=== PATIENT | female | born 1995 | race Caucasian/White ===

== ENCOUNTER → 2021-01-20 16:12 | Outpatient (BNVA) | payer MEDICAID, SELFPAY | PROVIDERS: Family Provider Family Medicine; Visit Provider Registered Nurse | DX: R05 Cough (principal); Z20.822 Contact with and (suspected) exposure to COVID-19 | CPT/HCPCS: 87635 ==

== ENCOUNTER → 2021-03-13 09:49 | Outpatient (BNVA) | payer MEDICAID, SELFPAY | PROVIDERS: Family Provider Family Medicine; Visit Provider Registered Nurse | DX: Z20.822 Contact with and (suspected) exposure to COVID-19 (principal) | CPT/HCPCS: 87635 ==

== ENCOUNTER 2024-05-15 10:36 | Emergency (ER) | payer MEDICAID, SELFPAY ==
[2024-05-15] VITALS (18 sets, daily range): BP systolic 115–139; BP diastolic 70–105; PULSE 113–139; RESP 17–27; TEMP 37.9–39.2; O2SAT 92–97; BMI 25.0
--- NOTE | 2024-05-15 10:39 | XRR_ITS ---
PROCEDURE INFORMATION: Exam: XR Abdomen Exam date and time: 05/15/2024 10:46 AM Age: 28 years old Clinical indication: Other: Left flank pain; Additional info: L flank pain - nephrolithiasis TECHNIQUE: Imaging protocol: Radiologic exam of the abdomen. Views: Frontal supine view of the abdomen. 1 View. Total images: 431 COMPARISON: No relevant prior studies available. FINDINGS: Gastrointestinal tract: Bowel gas pattern is nondistended and nonobstructive. Organs: No renal, ureteral, nor bladder calculi detected. Bones/joints: Unremarkable. Other findings: Mild stool burden. XR/XR KUB portable [id number] IMPRESSION: 1. Mild stool burden. 2. Normal bowel gas pattern 3. No renal, ureteral, nor bladder calculi detected.
--- NOTE | 2024-05-15 10:40 | W.ED.FEMALGU ---
HPI - Female Genitourinary General: Chief complaint: Abdominal Pain Stated complaint: kidney stones, flank pain Time Seen by Provider: 05/15/24 10:37 History of Present Illness: 28-year-old female who presents to the emergency room with left-sided flank pain. She was seen a few days ago in [place] told she had a 4 mm stone. She was discharged home on Flomax she is complaining of worsening left flank pain with fever and back pain. She denies any hematuria but notices that her urine has been somewhat discolored due to the Azo she has been taking. Associated symptoms: Deny abdominal pain Related Data Home Medications Medication Instructions Recorded Confirmed omeprazole 40 mg capsule,delayed 40 mg PO DAILY 05/15/24 05/15/24 release tamsulosin 0.4 mg capsule 0.4 mg PO DAILY 05/15/24 05/15/24 Allergies Allergy/AdvReac Type Severity Reaction Status Date / Time Penicillins Allergy Unknown Verified 11/02/23 14:19 Review of Systems Const: Denies: fever(s) or chills Card: Denies: chest pain Resp: Denies: dyspnea GI: Denies: abdominal pain : Reports: flank pain, dysuria, urinary frequency and urinary urgency Musc: Denies: neck pain or back pain Skin/Breast: Denies: rash PFSH ED PFSH: Social History Smoking and tobacco/nicotine status: current every day tobacco/nicotine user Alcohol intake: current Substance/Drug Use: never Sexually active: Yes Do you think of yourself as: Straight/Heterosexual Current gender identity: Female Physical Exam Const: GENERAL APPEARANCE: cooperative ORIENTATION/CONSCIOUSNESS: Yes awake, Yes oriented to person, Yes oriented to place and Yes oriented to time HENMT: COMMON NORMALS: normocephalic, atraumatic and hearing grossly normal bilaterally HEAD & SCALP: normocephalic and atraumatic Resp: COMMON NORMALS: normal respiratory effort, No retractions, No use of accessory muscles and clear to auscultation bilaterally AUSCULTATION: clear to auscultation bilaterally Cardio: COMMON NORMALS: regular rate, regular rhythm and No murmurs present (Cardio) RATE: regular rate RHYTHM: regular rhythm GI: COMMON NORMALS: Soft to palpation and No hepatosplenomegaly present AUSCULTATION: Yes normoactive bowel sounds PALPATION: Yes Soft to palpation, No Tenderness to palpation present (GI), No Guarding due to palpation present (GI) and Yes No hepatosplenomegaly present : BLADDER/KIDNEY EXAM: Yes CVA tenderness Back/Pelvis: GENERAL BACK: Yes CVA tenderness CVA tenderness: left Extremity: COMMON NORMALS: normal to inspection, capillary refill normal, no clubbing, cyanosis or edema, no calf tenderness and no pedal edema Neuro: SENSORIUM/ORIENTATION: Yes oriented to person, Yes oriented to place and Yes oriented to time Skin: COMMON NORMALS: no rashes or lesions noted GENERAL SKIN EXAM: no rashes or lesions noted Course Vital Signs: Vital signs: Vital Signs Temperature 100.7 F H 05/15/24 13:43 Pulse Rate 119 H 05/15/24 16:00 Respiratory Rate 26 H 05/15/24 16:00 Blood Pressure 127/75 05/15/24 14:04 Pulse Oximetry 97 05/15/24 16:00 Oxygen Delivery Me thod Room Air 05/15/24 14:04 MDM - Female Medical Decision Making Records from outside hospital reviewed patient had a cystitis no significant amount of hematuria but she did have a 4 mm distal stone. Patient has not previously been started on any antibiotics. She is tachycardic now with a temp of 100.3. No leukocytosis and lactic acid is normal. I believe this she does have a obstructive pyelonephritis she will require urology consultation or making arrangements to transfer to [facility] in [place]. Medical Records I reviewed the patient's medical records. Lab Data I reviewed the patient's lab results. 05/15/24 11:28 05/15/24 11:28 Radiology Impressions KUB X-Ray 05/15/24 10:39 IMPRESSION: 1. Mild stool burden. 2. Normal bowel gas pattern 3. No renal, ureteral, nor bladder calculi detected. Abdomen/Pelvis CT 05/15/24 11:47 IMPRESSION: 1. Mild LEFT hydroureteronephrosis secondary to a 4 mm calcification in the distal ureter near the UV junction. 2. Nonobstructing 2 mm calcification upper pole RIGHT kidney. 3. No GI tract obstruction. Laboratory Results WBC 10.84 10^3/uL (3.29-11.43) 05/15/24 11:28 RBC 3.72 10^6/uL (3.85-5.65) L 05/15/24 11:28 Hgb 11.40 g/dL (11.27-16.99) 05/15/24 11:28 Hct 34.2 % (36-47) L 05/15/24 11:28 MCV 91.9 fl (85-98) 05/15/24 11:28 MCH 30.6 pg (27-33) 05/15/24 11:28 MCHC 33.3 g/dL (30-55) 05/15/24 11:28 RDW 11.3 % (12.1-15.1) L 05/15/24 11:28 Plt Count 201 10^3/cmm (157-399) 05/15/24 11:28 MPV 9.6 fL (7.4-10.4) 05/15/24 11: Neut % (Auto) 85.3 % 05/15/24 11:28 Lymph % (Auto) 7.2 % 05/15/24 11:28 [place] % (Auto) 6.3 % 05/15/24 11:28 Eos % (Auto) 0.6 % 05/15/24 11:28 Baso % (Auto) 0.3 % 05/15/24 11:28 Neut # (Auto) 9.25 10^3/uL (1.8-7.7) H 05/15/24 11:28 Lymph # (Auto) 0.8 10^3/uL (0.8-4.8) 05/15/24 11:28 [place] # (Auto) 0.7 10^3/uL (0.2-0.9) 05/15/24 11:28 Eos # (Auto) 0.1 10^3/uL (0.0-0.8) 05/15/24 11:28 Baso # (Auto) 0.0 10^3/uL (0.0-0.1) 05/15/24 11:28 Nucleated RBC % (auto) 0 % 05/15/24 11:28 Nucleated RBCs # 0.0 /100WBC 05/15/24 11:28 Sodium 139 mmol/L (136-145) 05/15/24 11:28 Potassium 3.6 mmol/L (3.5-5.1) 05/15/24 11:28 Chloride 105 mmol/L (98-107) 05/15/24 11:28 Carbon Dioxide 24 mmol/L (22-29) 05/15/24 11:28 Anion Gap 13.6 (5-19) 05/15/24 11:28 BUN 10 mg/dL (6-20) 05/15/24 11:28 Creatinine 0.7 mg/dL (0.5-0.9) 05/15/24 11: GFR Calculation 98.3 mL/min (90-130) 05/15/24 11:28 Glucose 94 mg/dL (65-115) 05/15/24 11:28 Calculated Osmolality 287 mOsm/kg (285-295) 05/15/24 11:28 Lactic Acid 0.7 mmol/L (0.5-2.2) 05/15/24 11:28 Calcium 7.5 mg/dL (8.5-10.5) L 05/15/24 11:28 Total Bilirubin 0.2 mg/dL (0.15-1.2) 05/15/24 11:28 AST 42 U/L (0-32) H 05/15/24 11:28 ALT 55 U/L (0-33) H 05/15/24 11:28 Alkaline Phosphatase 125 U/L (35-105) H 05/15/24 11:28 Total Protein 5.1 g/dL (6.6-8.7) L 05/15/24 11:28 Albumin 3.4 g/dL (3.5-5.2) L 05/15/24 11:28 Globulin 1.7 g/dL (1.3-4.6) 05/15/24 11:28 Urine Color Dark yellow (Yellow) A 05/15/24 11:38 Urine Appearance Cloudy (CLEAR) A 05/15/24 11:38 Urine pH 6.5 (5-7) 05/15/24 11: Ur Specific [place] 1.018 (1.005-1.030) 05/15/24 11:38 Urine Protein Trace (Negative) A 05/15/24 11:38 Urine Glucose (UA) Negative (Normal) 05/15/24 11:38 Urine Ketones Trace (Negative) 05/15/24 11: Urine Blood Non-haemolysed trace (Negative) 05/15/24 11:38 Urine Nitrate Positive (Negative) A 05/15/24 11:38 Urine Bilirubin Negative (Negative) 05/15/24 11:38 Urine Urobilinogen 1.0 mg/dL (Negative) 05/15/24 11:38 Ur Leukocyte Esterase 1+ (Negative) A 05/15/24 11:38 Urine RBC 3-5 /hpf (0-2) 05/15/24 11:38 Urine WBC 51-100 /hpf (0-5) H 05/15/24 11:38 Ur Squamous Epith Cells 0-5 /hpf (0-5) 05/15/24 11:38 Amorphous Sediment Not Reportable 05/15/24 11:38 Urine Bacteria Exceeds /hpf (NONE) 05/15/24 11:38 Hyaline Casts 1.65 /lpf 05/15/24 11:38 All radiology interpretation(s) finalized by discharge Discharge Plan Discharge Patient Disposition: Xfer Short-Term Hosp Clinical Impression: Obstructive pyelonephritis, Right nephrolithiasis Condition: Stable Referrals: Joel Peck FNP [Primary Care Provider] - Coding Level of Care Code ED Certified Pediatric Nurse Practitioner for Ca[facility]nre
[2024-05-15 11:42] LABS: Bilirubin Urine Negative (Negative); Blood Urine Non-haemolysed trace (Negative); Glucose Urine UA Negative (Normal); Ketones Urine Trace (Negative); Leukocyte Esterase Urine 1+ (Negative); Nitrate Urine Positive (Negative); Protein Urine Trace (Negative); Specific Gravity, Urine 1.018 (1.005-1.030); Urine Appearance Cloudy (CLEAR); Urine Color Dark Yellow (Yellow); pH Urine 6.5 (5-7)
[2024-05-15] MEDS: acetaminophen 325 mg Tablet 650 MG PO (11:47)
--- NOTE | 2024-05-15 11:47 | CT_ITS ---
WS: [id number] CT ABDOMEN AND PELVIS NONCONTRAST HISTORY: flank pain TECHNIQUE: Imaging performed through the abdomen and pelvis. Coronal and sagittal reformats are submi tted. All CT scans at [facility] use at least one of these dose optimization techniques: auto mated exposure control; mA and/or kV adjustment per patient size (includes targeted exams where dose is matched to clinical indication); or iterative reconstruction. DLP: 410.84 mGy.cm COMPARISON: None available. Lower thorax: Lung bases are clear. Visualized heart is normal. No hiatal hernia. Liver: Normal size liver. No mass or bile duct dilatation. Gallbladder: Normal gallbladder. No pericholecystic fluid or cholelithiasis. No gallbladder wall thic [place]. Pancreas: Normal size and attenuation. Normal pancreatic duct. No pancreatitis or mass. Spleen: Normal. Adrenal glands: Very mild thickening of the LEFT adrenal gland. Right kidney: No obstruction. Normal size kidney. Nonobstructing calcification 2 mm in the upper pole . Left kidney: Normal size. Very mild dilatation of the renal pelvis and ureter. At the UV junction is a 4 mm calcification in the ureter. Aorta: Normal abdominal aorta, no aneurysm or atherosclerosis. No free fluid, intraperitoneal air or significant lymphadenopathy. GI tract: Nondistended stomach. No obstruction or colitis. No appendicitis. Abdominal wall: Negative. No hernia. Pelvis: No free fluid or adenopathy. Midline uterus. Osseous structures: Unremarkable. CT/CT kidney stone [id number] IMPRESSION: 1. Mild LEFT hydroureteronephrosis secondary to a 4 mm calcification in the di stal ureter near the UV junction. 2. Nonobstructing 2 mm calcification upper pole RIGHT kidney. 3. No GI tract obstruction.
[2024-05-15 11:49] LABS: Add Urine Microscopic? YES; Bacteria Urine EXCEEDS /hpf; Hyaline Casts Urine 1.65 /lpf; Squamous Epithelial Cell Urine 0-5 /hpf (0-5); WBC Urine 51-100 /hpf (0-5)
[2024-05-15] MEDS: morphine 4 mg/mL SDV 1 mL IVP ×2 (11:49→17:31)
[2024-05-15 11:50] LABS: Basophils % 0.3 %; Eosinophils # 0.1 10^3/uL (0.0-0.8); Eosinophils % 0.6 %; Hematocrit 34.2 % (36-47); Lymphocytes # 0.8 10^3/uL (0.8-4.8); Lymphocytes % 7.2 %; Mean Corpuscular HGB Conc 33.3 g/dL (30-55); Mean Corpuscular Hemoglobin 30.6 pg (27-33); Mean Corpuscular Volume 91.9 fl (85-98); Mean Platelet Volume 9.6 fL (7.4-10.4); Monocytes # 0.7 10^3/uL (0.2-0.9); Monocytes % 6.3 %; Neutrophils # 9.25 10^3/uL (1.8-7.7); Neutrophils % 85.3 %; Nucleated Red Blood Cells % 0 %; Platelet Count 201 10^3/cmm (157-399); Red Blood Count 3.72 10^6/uL (3.85-5.65); Red Cell Distribution Width 11.3 % (12.1-15.1); White Blood Count 10.84 10^3/uL (3.29-11.43)
[2024-05-15 11:51] LABS: Add Urine Culture? Yes
[2024-05-15 12:03] LABS: Alanine Aminotransferase 55 U/L (0-33); Albumin Level 3.4 g/dL (3.5-5.2); Alkaline Phosphatase 125 U/L (35-105); Anion Gap 13.6 (5-19); Aspartate Amino Transferase 42 U/L (0-32); Blood Urea Nitrogen 10 mg/dL (6-20); Calcium 7.5 mg/dL (8.5-10.5); Carbon Dioxide 24 mmol/L (22-29); Chloride 105 mmol/L (98-107); Creatinine Clr Calc Pharmacy 113.9357; Globulin 1.7 g/dL (1.3-4.6); Glomerular Filtration Rate 98.3 mL/min (90-130); Glucose 94 mg/dL (65-115); Osmolality Calculated 287 mOsm/kg (285-295); Potassium 3.6 mmol/L (3.5-5.1); Sodium 139 mmol/L (136-145); Total Bilirubin 0.2 mg/dL (0.15-1.2); Total Protein 5.1 g/dL (6.6-8.7)
[2024-05-15 12:04] LABS: Lactic Sepsis W/Reflex 0.7 mmol/L (0.5-2.2)
[2024-05-15] MEDS: sodium chloride 0.9% 1,000 ML 999 ML IV (13:36)
[2024-05-15] MEDS: cefTRIAXone 2,000 mg SDV 2000 MG IVP (13:39)
== END 2024-05-15 17:54 | disposition short-term general hospital (02) ==
PROVIDERS: Emergency Provider Family Medicine; PCP Nurse Practitioner Family
DX: N11.1 Chronic obstructive pyelonephritis (principal); N20.0 Calculus of kidney; Z72.0 Tobacco use
CPT/HCPCS: 74018; 74176; 80053; 81001; 83605; 85025; 87040; 87077; 87086; 87186; 96374; 96375; 96376; 99285; J0696; J2270; J7030

== ENCOUNTER → 2024-09-04 15:50 | Outpatient (BNVA) | payer MEDICAID, SELFPAY | PROVIDERS: PCP Nurse Practitioner Family; Visit Provider Obstetrics & Gynecology | DX: R87.610 Atypical squamous cells of undetermined significance on cytologic smear of cervix (ASC-US) (principal) | CPT/HCPCS: 88305; 88342 ==